=== PATIENT | female | born 1955 | race Caucasian/White ===

== ENCOUNTER 2016-05-03 00:46 | Emergency (ER) | payer OTHER, MEDICAID ==
--- NOTE | 2016-05-03 00:59 | ED ---
General Adult HPI - General Stated complaint: needle stick [facility] Time Seen by Provider: 05/03/16 00:46 Source: patient, RN notes reviewed - History of Present Illness Initial comments: This is a 60-year-old female who was stuck in the right index finger by a needle that apparently bad after she gave an injection of medication and the psychiatric department. She states she squeezed it and wash it well and irrigated. She denies any numbness tingling or loss of function to her tetanus shots are up-to-date no other complaints - Related Data Home Medications Medication Instructions Recorded Confirmed Naproxen [Naprosyn] 500 mg PO Q12HR 01/27/16 05/03/16 Previous Rx's Medication Instructions Recorded HYDROcodone/APAP 5-325MG [Tracy 1 tab PO Q6HR PRN #20 tab 01/27/16 5-325] Allergies Allergy/AdvReac Type Severity Reaction Status Date / Time Sulfa (Sulfonamide Allergy Anaphylaxis Verified 05/03/16 01:00 Antibiotics) Review of Systems ROS Statement: Those systems with pertinent positive or pertinent negative responses have been documented in the HPI. ROS Other: All systems not noted in ROS Statement are negative. Past Medical History Additional Past Medical History / Comment(s): neck pain History of Any Multi-Drug Resistant Organisms: None Reported Past Surgical History: Section Past Psychological History: No Psychological Hx Reported Smoking Status: Never smoker Past Alcohol Use History: None Reported Past Drug Use History: None Reported General Exam - General Exam Comments Initial Comments: This is a well-developed well-nourished awake alert oriented 3 female Limitations: no limitations General appearance: alert Extremities exam: Present: full ROM, tenderness, normal capillary refill, other (Evidence of a needle stick at the lateral aspect of the right index finger PIP joint no active bleeding no formed by seen a small amount of localized ecchymosis is noted. No foreign body. Distally is no sensorimotor or vascular deficits) Neurological exam: Present: alert, oriented X3, CN II-XII intact Psychiatric exam: Present: normal affect, normal mood Skin exam: Present: warm, dry Course Vital Signs 05/03/16 00:58 Temperature 99 F Pulse Rate 100 Respiratory 20 Rate Blood Pressure 195/102 O2 Sat by Pulse 97 Oximetry Medical Decision Making - Medical Decision Making I did discuss findings with the patient she will be discharged Disposition Clinical Impression: Puncture wound of finger of right hand Disposition: HOME SELF-CARE Condition: Good Instructions: Puncture Wound (ED)
[2016-05-03 01:00] VITALS: BP 195/102; PULSE 100; RESP 20; TEMP 99
== END 2016-05-03 01:29 | disposition home or self-care (01) ==
LOC: EC 00:46
DX: S61.230A Puncture wound without foreign body of right index finger without damage to nail, initial encounter (principal); W46.0XXA Contact with hypodermic needle, initial encounter; Y92.238 Other place in hospital as the place of occurrence of the external cause; Y99.0 Civilian activity done for income or pay; Z88.2 Allergy status to sulfonamides; Z79.1 Long term (current) use of non-steroidal anti-inflammatories (NSAID)
CPT/HCPCS: 99282

== ENCOUNTER → 2018-01-24 | Outpatient (CLI) | payer MEDICAID ==
--- NOTE | 2018-01-24 13:54 | MM ---
Reason for exam: screening (asymptomatic). Last mammogram was performed 1 year and 11 months ago. History: Patient is postmenopausal and has history of other cancer at age 42. Family history of breast cancer in maternal aunt. Benign right US cyst aspiration of the right breast, November 03, 2004. Physical Findings: A clinical breast exam by your physician is recommended on an annual basis and results should be correlated with mammographic findings. MG 3D Screening Mammo W/Cad Bilateral CC and MLO view(s) were taken. Prior study comparison: March 10, 2016, bilateral MG 3d screening mammo w/cad. May 25, 2013, bilateral digital screening mammo w/CAD. The breast tissue is heterogeneously dense. This may lower the sensitivity of mammography. Stable benign calcifications. There is no discrete abnormality. No significant changes when compared with prior studies. ASSESSMENT: Benign, BI-RAD 2 RECOMMENDATION: Routine screening mammogram of both breasts in 1 year.
== END | disposition home or self-care (01) ==
LOC: RADMAMWWP 08:04
PROVIDERS: ATTEND Internal Medicine
DX: Z12.31 Encounter for screening mammogram for malignant neoplasm of breast (principal)
CPT/HCPCS: 77063; 77067

== ENCOUNTER 2018-05-12 04:38 | Emergency (ER) | payer MEDICAID, OTHER ==
[2018-05-12 04:46] VITALS: RESP 18; TEMP 97.7
[2018-05-12] MEDS ORDERED: IBUPROFEN 600 MG TAB PO STA (04:46)
[2018-05-12] MEDS ORDERED: ACETAMINOPHEN TAB 325 MG TAB PO STA (04:46)
[2018-05-12 05:10] VITALS: BP 188/130; PULSE 109
--- NOTE | 2018-05-12 05:20 | XR ---
EXAM: XR Left Humerus, 2 or More Views CLINICAL HISTORY: ITS.REASON XR Reason: Pain TECHNIQUE: Frontal and lateral views of the left humerus. COMPARISON: No relevant prior studies available. FINDINGS: Bones/joints: No acute fracture. Subtle endosteal thickening/sclerotic density along the proximal to mid humeral shaft along the medial cortex. No periosteal changes. No lucent changes. This likely represents benign lesion. No dislocation. Soft tissues: Unremarkable. IMPRESSION: No acute bony abnormality. If symptoms persist, consider further imaging with bone scan or MR
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
== END 2018-05-12 05:42 | disposition home or self-care (01) ==
LOC: EC 04:38
DX: S50.02XA Contusion of left elbow, initial encounter (principal); I10 Essential (primary) hypertension; Z79.1 Long term (current) use of non-steroidal anti-inflammatories (NSAID); Z88.2 Allergy status to sulfonamides; Y04.8XXA Assault by other bodily force, initial encounter; Y92.69 Other specified industrial and construction area as the place of occurrence of the external cause; Y93.89 Activity, other specified
CPT/HCPCS: 99284

== ENCOUNTER → 2018-05-13 | Outpatient (CLI) | payer OTHER ==
--- NOTE | 2018-05-13 11:52 | XR ---
Left hip HISTORY: Trauma and pain 2 views of the left hip Bone mineralization, joint spaces and alignment are maintained. IMPRESSION: No fracture or dislocation.
== END | disposition home or self-care (01) ==
LOC: RADXRMAIN 09:24
PROVIDERS: ATTEND Emergency Medicine
DX: S70.02XA Contusion of left hip, initial encounter (principal)
CPT/HCPCS: 73502

== ENCOUNTER → 2018-05-30 | Outpatient (CLI) | payer OTHER ==
--- NOTE | 2018-05-30 09:37 | XR ---
EXAMINATION TYPE: XR cervical spine comp DATE OF EXAM: 05/30/2018 COMPARISON: NONE HISTORY: Pain TECHNIQUE: Four views are submitted. FINDINGS: There are no compression deformities. The prevertebral soft tissue structures are within normal limi ts. There is multilevel facet arthropathy and multilevel mild degenerative disc disease with moderat e changes at C5-C6. Posterior spondylosis noted. Soft tissue ossification seen. Foraminal encroachmen t C5-C6 noted. Odontoid view is suboptimal. Grossly intact on the lateral view. IMPRESSION: 1. Multilevel degenerative disc disease and facet arthropathy with suspected foraminal encroachment a t C5-C6. MRI correlation suggested.
== END | disposition home or self-care (01) ==
LOC: RADXRMAIN 09:15
PROVIDERS: ATTEND Emergency Medicine
DX: M50.322 Other cervical disc degeneration at C5-C6 level (principal); M46.82 Other specified inflammatory spondylopathies, cervical region; S40.022A Contusion of left upper arm, initial encounter
CPT/HCPCS: 72050

== ENCOUNTER 2018-05-31 07:37 | Emergency (ER) | payer MEDICAID ==
[2018-05-31 07:43] VITALS: RESP 18; TEMP 98.6
[2018-05-31] MEDS ORDERED: LABETALOL SYRINGE 5 MG/ML IVP STA ×3 (08:07→10:28)
[2018-05-31] MEDS ORDERED: SODIUM CHLORIDE 0.9% 1,000 ML IV STA (08:07)
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
[2018-05-31 08:56] LABS: Basophils # (A) 0.1 k/uL (0-0.2); Basophils % (A) 1 %; Eosinophils # (A) 0.2 k/uL (0-0.7); Eosinophils % (A) 2 %; HCT 41.9 % (34.0-46.0); Lymphocytes # (A) 1.3 k/uL (1.0-4.8); Lymphocytes % (A) 19 %; MCH 30.4 pg (25.0-35.0); MCHC 33.5 g/dL (31.0-37.0); MCV 90.8 fL (80.0-100.0); Mean Platelet Volume 6.8; Monocytes # (A) 0.6 k/uL (0-1.0); Monocytes % (A) 9 %; Neutrophils # (A) 4.6 k/uL (1.3-7.7); Neutrophils % (A) 67 %; Platelet Count 308 k/uL (150-450); RBC 4.61 m/uL (3.80-5.40); RDW 13.7 % (11.5-15.5); WBC 6.8 k/uL (3.8-10.6)
--- NOTE | 2018-05-31 09:01 | CT ---
EXAMINATION TYPE: CT brain wo con DATE OF EXAM: 05/31/2018 HISTORY: headache, high blood pressure CT DLP: 1087.4 mGycm. Automated Exposure Control for Dose Reduction was Utilized. TECHNIQUE: CT scan of the head is performed without contrast. COMPARISON: None. FINDINGS: There is no acute intracranial hemorrhage or midline shift identified. There is diffuse v entricular and sulcal prominence consistent with diffuse age-related cerebral atrophy. There is low- attenuation in the periventricular white matter consistent with chronic small vessel ischemic change. Dominant left vertebral artery is incidentally noted. The globes are intact and the visualized sinu ses are clear. IMPRESSION: No acute intracranial hemorrhage or midline shift. There is mild diffuse age-related ce rebral atrophy and chronic small vessel ischemic change noted.
[2018-05-31 09:06] LABS: Albumin 4.5 g/dL (3.5-5.0); Calcium 9.7 mg/dL (8.4-10.2); Total Bilirubin 0.5 mg/dL (0.2-1.3); Total Protein 7.2 g/dL (6.3-8.2)
[2018-05-31 12:43] VITALS: BP 173/102; PULSE 82
== END 2018-05-31 12:43 | disposition home or self-care (01) ==
LOC: EC 07:37
DX: I10 Essential (primary) hypertension (principal); Z85.828 Personal history of other malignant neoplasm of skin; Z79.82 Long term (current) use of aspirin; Z88.2 Allergy status to sulfonamides
CPT/HCPCS: 36415; 70450; 80053; 85025; 96361; 96374; 96376; 99284

== ENCOUNTER → 2018-06-03 | Outpatient (CLI) | payer OTHER ==
--- NOTE | 2018-06-03 15:04 | MR ---
EXAMINATION TYPE: MR shoulder LT wo con DATE OF EXAM: 06/03/2018 COMPARISON: Left humeral radiographs dated 05/12/2018 HISTORY: Left shoulder pain TECHNIQUE: Multiplanar, multisequence imaging of the left shoulder is performed without contrast. FINDINGS: Rotator Cuff: There is articular surface fraying of the most anterior distal fibers of the supraspina tus and bursal surface fraying of the distal fibers with a 4 mm articular surface tear. This is super imposed upon mild tendinopathy. With regards to the infraspinatus there is mild tendinopathy with alteration of the distal insertiona l fiber tendon signal. The teres minor and subscapularis are unremarkable in signal and morphology. Acromioclavicular Joint: There is mild acromioclavicular arthropathy with minimal impression upon the supraspinatus myotendinous junction. No alteration of the internal signal of the supraspinatus at th is location. Glenohumeral Joint: No joint space narrowing. Labrum: The there is a superior posterior labral tear seen on sagittal image 17. This is nondisplaced .. Biceps Tendon: The long head of biceps is in normal location within bicipital groove. There is modera te ventricular portion biceps tendinosis as there is attenuation of the intra-articular portion of th e long head of biceps Bone marrow signal: No focal abnormal marrow signal is appreciated. Osseous cystic changes seen of th e humeral head greater posteriorly. Other: There is a trace amount of fluid in the subcoracoid bursa that may clinically correlate with b ursitis. IMPRESSION: 1. Low-grade partial-thickness 4 mm articular surface tear of the distal fibers of the supraspinatus superimposed upon mild tendinopathy. 2. Small nondisplaced posterior superior labral tear. 3. Moderate intra-articular biceps tendinopathy of the long head of the biceps tendon. 4. Mild infraspinatus tendinopathy. 5. Trace amount of fluid in the subcoracoid bursa may correlate with bursitis clinically. 6. Mild acromioclavicular arthropathy.
== END | disposition home or self-care (01) ==
LOC: RADMRIMAIN 13:39
PROVIDERS: ATTEND Emergency Medicine
DX: S43.492A Other sprain of left shoulder joint, initial encounter (principal); M75.112 Incomplete rotator cuff tear or rupture of left shoulder, not specified as traumatic; M75.22 Bicipital tendinitis, left shoulder; M19.012 Primary osteoarthritis, left shoulder

== ENCOUNTER → 2018-06-18 | Outpatient (CLI) | payer MEDICAID ==
--- NOTE | 2018-06-18 14:19 | PE ---
EXAMINATION TYPE: PET CT fusion whole body DATE OF EXAM: 06/18/2018 COMPARISON: NONE HISTORY: Malignant melanoma diagnosed right hip, left arm, left face, and right back per patient TECHNIQUE: Following the intravenous administration of 12.79 mCi of F-18 FDG, whole body images are performed from the top of skull to the bottom of feet. Images are reviewed on the computer in the co froilan, axial, and sagittal planes. Reconstructed rotating images are created on independent workstat ion and reviewed on the computer. A noncontrast CT is performed in conjunction with the PET scan. SCAN: Initial Scan FINDINGS: HEAD AND NECK: No suspicious hypermetabolic uptake. CHEST, MEDIASTINUM, AND HILAR REGION: No suspicious hypermetabolic uptake. ABDOMEN AND PELVIS: Normal urinary is present. No suspicious hypermetabolic uptake is seen. OSSEOUS STRUCTURES: Mild uptake left shoulder region presumed postinflammatory. No suspicious hyperme tabolic uptake. OTHER CT: Mild underlying emphysematous changes felt present with dependent atelectasis in both lower lobes. Mild facet arthropathy lower lumbar spine. LOWER EXTREMITIES: No suspicious hypermetabolic uptake. Incidental small bilateral Simmons's cysts. IMPRESSION: No suspicious hypermetabolic uptake to suggest residual or metastatic malignancy assuming patient had complete multilevel excision.
== END | disposition home or self-care (01) ==
LOC: RADPETMAIN 07:30
PROVIDERS: ATTEND Internal Medicine
DX: C43.8 Malignant melanoma of overlapping sites of skin (principal)
CPT/HCPCS: 78816; A9552

== ENCOUNTER → 2019-02-08 | Outpatient (CLI) | payer MEDICAID ==
[2019-02-08 08:29] LABS: Basophils # (A) 0.1 k/uL (0-0.2); Basophils % (A) 1 %; Eosinophils # (A) 0.2 k/uL (0-0.7); Eosinophils % (A) 2 %; HCT 41.9 % (34.0-46.0); HGB 13.9 gm/dL (11.4-16.0); Lymphocytes # (A) 2.3 k/uL (1.0-4.8); Lymphocytes % (A) 28 %; MCH 30.1 pg (25.0-35.0); MCHC 33.2 g/dL (31.0-37.0); MCV 90.7 fL (80.0-100.0); Mean Platelet Volume 7.1; Monocytes # (A) 0.6 k/uL (0-1.0); Monocytes % (A) 7 %; Neutrophils # (A) 4.9 k/uL (1.3-7.7); Neutrophils % (A) 60 %; Platelet Count 320 k/uL (150-450); RBC 4.62 m/uL (3.80-5.40); RDW 13.2 % (11.5-15.5); WBC 8.1 k/uL (3.8-10.6)
[2019-02-08 16:20] LABS: Albumin 4.6 g/dL (3.80-4.90); Anion Gap 10.1 mmol/L (4.00-12.00); BUN/Creat Ratio 16.67 Ratio (12.00-20.00); Calcium 9.3 mg/dL (8.7-10.3); Carbon Dioxide 27.9 mmol/L (21.6-31.8); Chol/HDL Ratio 2.34; Globulin 2.3 g/dL (1.6-3.3); LDL Cholesterol,Calculated 110.4 mg/dL (0.0-131.0); Potassium 4.6 mmol/L (3.5-5.5); Total Bilirubin 0.4 mg/dL (0.2-1.2); Total Protein 6.9 g/dL (6.2-8.2); VLDL Calculation 16.6 mg/dL (5.00-40.00)
== END | disposition home or self-care (01) ==
LOC: LABWHC1 07:42
PROVIDERS: ATTEND Internal Medicine
DX: Z00.01 Encounter for general adult medical examination with abnormal findings (principal); Z13.220 Encounter for screening for lipoid disorders; I10 Essential (primary) hypertension
CPT/HCPCS: 36415; 80053; 80061; 85025

== ENCOUNTER → 2019-03-08 | Outpatient (CLI) | payer MEDICAID ==
--- NOTE | 2019-03-09 09:54 | MM ---
Reason for exam: screening (asymptomatic). Last mammogram was performed 1 year and 1 month ago. History: Patient is postmenopausal and has history of other cancer at age 42. Family history of breast cancer in maternal aunt. Benign right US cyst aspiration of the right breast, November 03, 2004. Physical Findings: A clinical breast exam by your physician is recommended on an annual basis and results should be correlated with mammographic findings. MG 3D Screening Mammo W/Cad Bilateral CC and MLO view(s) were taken. Prior study comparison: January 24, 2018, bilateral MG 3d screening mammo w/cad. March 10, 2016, bilateral MG 3d screening mammo w/cad. The breast tissue is heterogeneously dense. This may lower the sensitivity of mammography. Benign appearing calcifications in the left breast. No suspicious abnormality. No significant changes when compared with prior studies. ASSESSMENT: Benign, BI-RAD 2 RECOMMENDATION: Routine screening mammogram of both breasts in 1 year.
== END | disposition home or self-care (01) ==
LOC: RADMAMWWP 07:36
PROVIDERS: ATTEND Internal Medicine
DX: Z12.31 Encounter for screening mammogram for malignant neoplasm of breast (principal)
CPT/HCPCS: 77063; 77067

== ENCOUNTER → 2020-02-09 | Outpatient (CLI) | payer MEDICAID ==
[2020-02-09 08:58] LABS: HCT 41.8 % (34.0-46.0); HGB 14.1 gm/dL (11.4-16.0); MCH 30.3 pg (25.0-35.0); MCHC 33.7 g/dL (31.0-37.0); MCV 89.9 fL (80.0-100.0); Mean Platelet Volume 7.9; Platelet Count 337 k/uL (150-450); RBC 4.65 m/uL (3.80-5.40); RDW 13.1 % (11.5-15.5); WBC 8.3 k/uL (3.8-10.6)
[2020-02-09 16:05] LABS: African American GFR (CKD) 69.9 (60.0-200.0); Albumin 4.5 g/dL (3.80-4.90); Albumin/Globulin Ratio 1.96 (1.60-3.17); Anion Gap 8.9 mmol/L (4.00-12.00); Calcium 9.6 mg/dL (8.7-10.3); Carbon Dioxide 27.1 mmol/L (21.6-31.8); Chol/HDL Ratio 2.49; Globulin 2.3 g/dL (1.6-3.3); LDL Cholesterol,Calculated 113.8 mg/dL (0.0-131.0); Non-African American GFR(CKD) 60.3 (60.0-200.0); Potassium 4.7 mmol/L (3.5-5.5); Total Bilirubin 0.4 mg/dL (0.3-1.2); Total Protein 6.8 g/dL (6.2-8.2); VLDL Calculation 17.2 mg/dL (5.00-40.00)
== END | disposition home or self-care (01) ==
LOC: LABWHC1 07:50
PROVIDERS: ATTEND Internal Medicine
DX: Z00.01 Encounter for general adult medical examination with abnormal findings (principal); Z13.220 Encounter for screening for lipoid disorders; I10 Essential (primary) hypertension
CPT/HCPCS: 36415; 80053; 80061; 85027

== ENCOUNTER → 2020-05-02 | Outpatient (CLI) | payer MEDICAID ==
--- NOTE | 2020-05-03 14:12 | MM ---
Reason for exam: screening (asymptomatic). Last mammogram was performed 1 year and 2 months ago. History: Patient is postmenopausal and has history of other cancer at age 42. Family history of breast cancer in maternal aunt. Benign right US cyst aspiration of the right breast, November 03, 2004. Physical Findings: A clinical breast exam by your physician is recommended on an annual basis and results should be correlated with mammographic findings. MG 3D Screening Mammo W/Cad Bilateral CC and MLO view(s) were taken. XCCL view(s) were taken of the right breast. Prior study comparison: March 08, 2019, bilateral MG 3d screening mammo w/cad. January 24, 2018, bilateral MG 3d screening mammo w/cad. The breast tissue is heterogeneously dense. This may lower the sensitivity of mammography. No significant changes when compared with prior studies. ASSESSMENT: Benign, BI-RAD 2 RECOMMENDATION: Routine screening mammogram of both breasts in 1 year.
== END | disposition home or self-care (01) ==
LOC: RADMAMWWP 08:05
PROVIDERS: ATTEND Internal Medicine
DX: Z12.31 Encounter for screening mammogram for malignant neoplasm of breast (principal)
CPT/HCPCS: 77063; 77067

== ENCOUNTER → 2020-10-30 | Outpatient (CLI) | payer MEDICAID | END | disposition home or self-care (01) | LOC: LABWHC1 15:00 | PROVIDERS: ATTEND Emergency Medicine | DX: Z03.818 Encounter for observation for suspected exposure to other biological agents ruled out (principal); Z20.822 Contact with and (suspected) exposure to COVID-19 | CPT/HCPCS: 87635; C9803 ==

== ENCOUNTER → 2021-02-06 | Outpatient (CLI) | payer MEDICAID ==
[2021-02-06 15:39] LABS: Basophils # (A) 0.09 X 10*3/uL (0.00-0.10); Basophils % (A) 1.1 %; Eosinophils % (A) 3.8 %; HCT 42.6 % (37.2-46.3); HGB 13.8 g/dL (12.0-15.0); Lymphocytes # (A) 3.05 X 10*3/uL (0.90-5.00); Lymphocytes % (A) 38.9 %; MCH 29.7 pg (27.0-32.0); MCHC 32.4 g/dL (32.0-37.0); MCV 91.6 fL (80.0-97.0); Mean Platelet Volume 10.6 fL (9.5-12.2); Monocytes # (A) 0.64 X 10*3/uL (0.20-1.00); Monocytes % (A) 8.2 %; Neutrophils # (A) 3.74 X 10*3/uL (1.80-7.70); Neutrophils % (A) 47.7 %; Platelet Count 347 X 10*3/uL (140-440); RBC 4.65 X 10*6/uL (4.10-5.20); RDW 13.7 % (11.5-14.5); WBC 7.84 X 10*3/uL (4.50-10.00)
[2021-02-06 16:36] LABS: ALT 49 U/L (8-44); AST 36 U/L (13-35); African American GFR (CKD) 78.9 (60.0-200.0); Albumin 4.6 g/dL (3.8-4.9); Albumin/Globulin Ratio 1.77 (1.60-3.17); Alkaline Phosphatase 108 U/L (41-126); BUN/Creat Ratio 12.89 Ratio (12.00-20.00); Blood Urea Nitrogen 11.6 mg/dL (9.0-27.0); Calcium 9.5 mg/dL (8.7-10.3); Chloride 105 mmol/L (96-109); Chol/HDL Ratio 2.67 Ratio; Globulin 2.6 g/dL (1.6-3.3); Glucose 84 mg/dL (70-110); LDL Cholesterol,Calculated 132.9 mg/dL (0.0-131.0); Sodium 142 mmol/L (135-145); Total Protein 7.2 g/dL (6.2-8.2)
== END | disposition home or self-care (01) ==
LOC: LABWHC1 07:46
PROVIDERS: ATTEND Internal Medicine
DX: Z13.220 Encounter for screening for lipoid disorders (principal); Z00.01 Encounter for general adult medical examination with abnormal findings; I10 Essential (primary) hypertension
CPT/HCPCS: 36415; 80053; 80061; 85025

== ENCOUNTER 2021-04-08 18:40 | Emergency (ER) | payer MEDICAID, OTHER ==
--- NOTE | 2021-04-08 20:08 | ED ---
General Adult HPI - General Stated complaint: possible shingles Time Seen by Provider: 04/08/21 19:30 Source: patient, RN notes reviewed Limitations: no limitations - History of Present Illness Initial comments: This is a pleasant 65-year-old female who presents to the emergency room with symptoms have COVID-19. Patient went for an outpatient Covid test. Patient also has developed a rash to her right flank area. She states she is getting stinging and burning to the area. Patient has no respiratory distress. Patient states that she has had low-grade fever, some body aches, fatigue which started yesterday. Patient states that her rash actually started about 5 days ago. No headache, s, no changes in vision or hearing, no sore throat or difficulty with speech, no neck pain, no chest pain or shortness of breath, no abdominal pain, no nausea or vomiting, no changes in urination or bowel movements, no numbness or tingling, no extremity pain, no skin rashes or lesions. - Related Data Home Medications Medication Instructions Recorded Confirmed Multivitamins, Thera [Multivitamin 1 tab PO DAILY 05/31/18 04/08/21 (formulary)] amLODIPine [Norvasc] 10 mg PO DAILY 04/08/21 04/08/21 Previous Rx's Medication Instructions Recorded valACYclovir HCL 1,000 mg PO TID 7 Days #21 tab 04/08/21 Allergies Allergy/AdvReac Type Severity Reaction Status Date / Time Sulfa (Sulfonamide Allergy Anaphylaxis Verified 04/08/21 20:18 Antibiotics) Review of Systems ROS Statement: Those systems with pertinent positive or pertinent negative responses have been documented in the HPI. ROS Other: All systems not noted in ROS Statement are negative. Past Medical History Additional Past Medical History / Comment(s): neck pain, skin cancer History of Any Multi-Drug Resistant Organisms: None Reported Past Surgical History: Section Additional Past Surgical History / Comment(s): skin cancer removed Past Psychological History: No Psychological Hx Reported Past Alcohol Use History: None Reported Past Drug Use History: None Reported General Exam - General Exam Comments Initial Comments: Patient does not appear to be ill or toxic. Vital signs stable, patient afebrile. General appearance: alert, in no apparent distress Head exam: Present: atraumatic, normocephalic, normal inspection Eye exam: Present: normal appearance, PERRL, EOMI. Absent: scleral icterus, conjunctival injection, periorbital swelling ENT exam: Present: normal exam, mucous membranes moist Neck exam: Present: normal inspection. Absent: tenderness, meningismus, lymphadenopathy Respiratory exam: Present: normal lung sounds bilaterally. Absent: respiratory distress, wheezes, rales, rhonchi, stridor Cardiovascular Exam: Present: regular rate, normal rhythm, normal heart sounds. Absent: systolic murmur, diastolic murmur, rubs, gallop, clicks GI/Abdominal exam: Present: soft, normal bowel sounds. Absent: distended, tenderness, guarding, rebound, rigid Extremities exam: Present: normal inspection, full ROM, normal capillary refill. Absent: tenderness, pedal edema, joint swelling, calf tenderness Back exam: Present: normal inspection, full ROM. Absent: tenderness Neurological exam: Present: alert, oriented X3, CN II-XII intact Psychiatric exam: Present: normal affect, normal mood Skin exam: Present: warm, dry, intact, rash, vesicles (Vesicular rash to the right back and flank consistent with herpes zoster dermatitis. Corresponds to the T10 or 11 dermatome.) Course Vital Signs 04/08/21 20:09 Temperature 101.6 F H Pulse Rate 110 H Respiratory 20 Rate Blood Pressure 165/119 O2 Sat by Pulse 98 Oximetry Medical Decision Making - Medical Decision Making Test positive for COVID-19. Patient has no evidence of poor oxygenation. No tachypnea on room air. Also has symptoms consistent with herpes zoster dermatitis. However we did miss to 48 hour cardiac. Will treat with valacyclovir. Patient only complaining of mild stinging pain which is intermittent to the area. Patient can continue [id number] acetaminophen and/or ibuprofen for further pain control. Follow-up with your regular physician as directed. Return to the ER immediately if any symptoms worsen, new symptoms arise, or any other problems develop. Patient counseling quarantine measures. All questions answered. Disposition Clinical Impression: COVID-19, Herpes zoster dermatitis Disposition: HOME SELF-CARE Condition: Stable Instructions (If sedation given, give patient instructions): Coronavirus Disease 2019 (COVID-19), Shingles (ED) Additional Instructions: SELF QUARANTINE DISCHARGE: As you are at risk for symptoms due to coronavirus, please stay home and stay away from others as much as possible. Please maintain social distance of 6 feet if possible. You should not return to work until at least 3 days (72 hours) have passed since recovery of symptoms. This defined as resolution of fever without the use of fever reducing medicines and improvement in respiratory symptoms (e.g,, cough, shortness of breath) and, At least 5 days have passed since symptoms first appeared. More information about what to do if you are sick can be found on the CDC website at https://www.cdc.gov/coronavirus/2019-ncov/ri-zeo-alf-sick/amgdd-eydo-ruaf.html Expect the symptoms to last for 7-14 days from onset. Use acetaminophen (Tylenol) as needed for discomfort. You can take a maximum of 1 gram every 6 hours for discomfort, with your total dose in 24 hours not exceeding 4 grams. Be sure to maintain hydration. Drink continuous water and/or items high in vitamin C, such as orange juice and/or lemonade. Unless you have high blood pressure, you may consider Sudafed (which is [id number]) for nasal congestion. I would suggest that a short acting Sudafed rather than the 24 hour Sudafed. For a cough you may take Mucinex or Robitussin. Also consider the use of Vicks Vapor Rub or your chest when you sleep. Use a humidifier that is cleaned frequently, in the bedroom at night. For Nausea /Vomiting/Diarrhea associated with your Illness: o Small frequent sips of room temperature liquids. o Diet: [place] Foods - If you are still experiencing discomfort and/or nausea please slowly advancing your diet using the BRAT Diet = bananas, rice, apples/apple sauce, toast. o With diarrhea avoid any dairy for 48 hours after symptoms resolved. o Continue with activity as tolerated. If your symptoms do get worse and you believe that the upper respiratory infection has developed into something else, such as pneumonia or severe dehyd ration, please return to the emergency department or follow-up with your primary care. But expect to be symptomatic for the days as indicated above Touch base with your regular physician by phone. Call tomorrow. Prescriptions: valACYclovir HCL 1,000 mg PO TID 7 Days #21 tab Is patient prescribed a controlled substance at d/c from ED?: No Referrals: Savita Plaza MD [Primary Care Provider] - 04/15/21 Time of Disposition: 20:39
[2021-04-08 20:12] VITALS: BP 165/119; PULSE 110; RESP 20; TEMP 101.6
[2021-04-08] MEDS ORDERED: valACYclovir 500 MG TAB PO STA (20:35)
[2021-04-08] MEDS ORDERED: IBUPROFEN 400 MG TAB PO STA (20:35)
[2021-04-08] MEDS ORDERED: ACETAMINOPHEN TAB 500 MG TAB PO STA (20:35)
== END 2021-04-08 21:01 | disposition home or self-care (01) ==
LOC: EC 18:40
DX: U07.1 COVID-19 (principal); B02.0 Zoster encephalitis; L30.9 Dermatitis, unspecified; Z88.2 Allergy status to sulfonamides
CPT/HCPCS: 99283

== ENCOUNTER → 2021-04-08 | Outpatient (CLI) | payer MEDICAID, OTHER | END | disposition home or self-care (01) | LOC: LABWHC1 16:47 | PROVIDERS: ATTEND Emergency Medicine | DX: U07.1 COVID-19 (principal) | CPT/HCPCS: 87635 ==

== ENCOUNTER → 2021-05-21 | Outpatient (CLI) | payer MEDICAID ==
--- NOTE | 2021-05-22 14:31 | MM ---
Reason for exam: screening (asymptomatic). Last mammogram was performed 1 year and 1 month ago. History: Patient is postmenopausal and has history of other cancer at age 42. Family history of breast cancer in maternal aunt. Benign right US cyst aspiration of the right breast, November 03, 2004. Physical Findings: A clinical breast exam by your physician is recommended on an annual basis and results should be correlated with mammographic findings. MG 3D Screening Mammo W/Cad Bilateral CC and MLO view(s) were taken. Prior study comparison: May 02, 2020, bilateral MG 3d screening mammo w/cad. March 08, 2019, bilateral MG 3d screening mammo w/cad. The breast tissue is heterogeneously dense. This may lower the sensitivity of mammography. There is no discrete abnormality. No significant changes when compared with prior studies. ASSESSMENT: Negative, BI-RAD 1 RECOMMENDATION: Routine screening mammogram of both breasts in 1 year.
== END | disposition home or self-care (01) ==
LOC: RADMAMWWP 08:06
PROVIDERS: ATTEND Internal Medicine
DX: Z12.31 Encounter for screening mammogram for malignant neoplasm of breast (principal)
CPT/HCPCS: 77063; 77067

== ENCOUNTER → 2021-08-13 | Outpatient (CLI) | payer MEDICAID ==
[2021-08-13 09:08] LABS: Basophils # (A) 0.06 X 10*3/uL (0.00-0.10); Basophils % (A) 0.7 %; Eosinophils # (A) 0.26 X 10*3/uL (0.04-0.35); Immature Grans, Automated 0.4 %; Lymphocytes # (A) 2.85 X 10*3/uL (0.90-5.00); Lymphocytes % (A) 33.3 %; MCH 30.3 pg (27.0-32.0); MCHC 34.1 g/dL (32.0-37.0); MCV 88.7 fL (80.0-97.0); Mean Platelet Volume 10.5 fL (9.5-12.2); Monocytes # (A) 0.74 X 10*3/uL (0.20-1.00); Monocytes % (A) 8.6 %; NRBC Per 100 WBC 0 /100 WBCS (0.0-0.0); Neutrophils # (A) 4.62 X 10*3/uL (1.80-7.70); Platelet Count 356 X 10*3/uL (140-440); RBC 4.62 X 10*6/uL (4.10-5.20); RDW 13.2 % (11.5-14.5); WBC 8.56 X 10*3/uL (4.50-10.00)
[2021-08-13 10:18] LABS: ALT 34 U/L (8-44); AST 27 U/L (13-35); African American GFR (CKD) 68.9 (60.0-200.0); Albumin 4.7 g/dL (3.8-4.9); Albumin/Globulin Ratio 1.74 (1.60-3.17); Alkaline Phosphatase 81 U/L (41-126); Blood Urea Nitrogen 12.6 mg/dL (9.0-27.0); Calcium 9.6 mg/dL (8.7-10.3); Carbon Dioxide 24.5 mmol/L (20.0-27.5); Chloride 106 mmol/L (96-109); Chol/HDL Ratio 2.71 Ratio; Globulin 2.7 g/dL (1.6-3.3); Glucose 99 mg/dL (70-110); Non-African American GFR(CKD) 59.5 (60.0-200.0); Potassium 4.2 mmol/L (3.5-5.5); Sodium 142 mmol/L (135-145); Total Protein 7.4 g/dL (6.2-8.2); VLDL Calculation 17.32 mg/dL (5.00-40.00)
== END | disposition home or self-care (01) ==
LOC: LABWHC1 08-12 07:41
PROVIDERS: ATTEND Internal Medicine
DX: Z13.220 Encounter for screening for lipoid disorders (principal); I10 Essential (primary) hypertension
CPT/HCPCS: 36415; 80053; 80061; 85025

== ENCOUNTER → 2022-11-25 | Outpatient (CLI) | payer MEDICAID ==
[2022-11-25 12:26] LABS: Basophils # (A) 0.08 X 10*3/uL (0.00-0.10); Basophils % (A) 0.9 %; Eosinophils # (A) 0.35 X 10*3/uL (0.04-0.35); Eosinophils % (A) 3.8 %; HCT 40.1 % (37.2-46.3); HGB 13.5 d/dL (12.0-15.0); Lymphocytes # (A) 3.31 X 10*3/uL (0.90-5.00); Lymphocytes % (A) 35.7 %; MCHC 33.7 d/dL (32.0-37.0); MCV 89.1 FL (80.0-97.0); Mean Platelet Volume 10.7 FL (9.5-12.2); Monocytes # (A) 0.81 X 10*3/uL (0.20-1.00); Monocytes % (A) 8.7 %; NRBC Per 100 WBC 0 X 10*3/uL (0.00-0.01); Neutrophils # (A) 4.71 X 10*3/uL (1.80-7.70); Neutrophils % (A) 50.7 %; Platelet Count 331 X 10*3/uL (140-440); RDW 13.3 % (11.5-14.5); WBC 9.28 X 10*3/uL (4.50-10.00)
[2022-11-25 13:08] LABS: ALT 44 U/L (8-44); AST 32 U/L (13-35); Albumin 4.6 d/dL (3.8-4.9); Alkaline Phosphatase 86 U/L (41-126); BUN/Creat Ratio 14.91 Ratio (12.00-20.00); Blood Urea Nitrogen 16.4 mg/dL (9.0-27.0); Calcium 9.8 mg/dL (8.7-10.3); Chloride 105 mmol/L (96-109); Globulin 2.3 d/dL (1.6-3.3); Glucose 97 mg/dL (70-110); LDL Cholesterol,Calculated 120.6 mg/dL (0.0-131.0); Potassium 4.9 mmol/L (3.5-5.5); Sodium 141 mmol/L (135-145); Total Bilirubin 0.4 mg/dL (0.3-1.2); Total Protein 6.9 d/dL (6.2-8.2)
== END | disposition home or self-care (01) ==
LOC: LABWHC1 07:41
PROVIDERS: ATTEND Internal Medicine
DX: Z00.01 Encounter for general adult medical examination with abnormal findings (principal); Z13.220 Encounter for screening for lipoid disorders; I10 Essential (primary) hypertension
CPT/HCPCS: 36415; 80053; 80061; 85025

== ENCOUNTER → 2024-02-18 | Outpatient (CLI) | payer MEDICAID ==
--- NOTE | 2024-02-22 08:13 | MM ---
Reason for Exam: Screening (asymptomatic). Last mammogram was performed 1 year(s) and 8 month(s) ago. Patient History: Menarche at age 15. First Full-Term at age 21. Postmenopausal. Other cancer, age 42. 11/03/2004, Benign Cyst Aspiration on the right side. Maternal aunt had breast cancer. Risk Values: Jemma 5 year model risk: 1.2%. NCI Lifetime model risk: 4.4%. Prior Study Comparison: 05/02/2020 Bilateral Screening Mammogram, [facility]. 05/21/2021 Bilateral Screening Mammogram, [facility]. 06/02/2022 Bilateral MG 3D screening mammo w/cad, [facility]. Tissue Density: The breasts are heterogeneously dense, which may obscure small masses. Findings: Analyzed By CAD. There is no suspicious group of microcalcifications or new suspicious mass in either breast. Benign-appearing calcifications. Overall Assessment: Benign, BI-RAD 2 Management: Screening Mammogram of both breasts in 1 year. . Patient should continue monthly self-breast exams. A clinical breast exam by your physician is recommended on an annual basis. This exam should not preclude additional follow-up of suspicious palpable abnormalities. Note on Jemma scores and lifetime risk: 1. A Jemma score greater than 3% is considered moderate risk. If this is the case, consider specialist referral to assess eligibility for a risk reducing agent. 2. If overall lifetime risk for the development of breast cancer is 20% or higher, the patient may qualify for future screening with alternating mammogram and breast MRI. [facility], , 02/22/2024 8:11 AM. Electronically signed and approved by: Hong Samson M.D. Radiologis
== END | disposition home or self-care (01) ==
LOC: RADMAMWWP 14:33
PROVIDERS: ATTEND Internal Medicine
DX: Z12.31 Encounter for screening mammogram for malignant neoplasm of breast (principal); Z78.0 Asymptomatic menopausal state; Z80.3 Family history of malignant neoplasm of breast; R92.333 Mammographic heterogeneous density, bilateral breasts
CPT/HCPCS: 77063; 77067

== ENCOUNTER → 2024-02-18 | Outpatient (CLI) | payer MEDICAID ==
[2024-02-18 20:10] LABS: HCT 42.1 % (37.2-46.3); HGB 14.1 g/dL (12.0-15.0); MCH 30.3 pg (27.0-32.0); MCHC 33.5 g/dL (32.0-37.0); MCV 90.5 FL (80.0-97.0); Mean Platelet Volume 10.6 FL (9.5-12.2); NRBC Per 100 WBC 0 X 10*3/uL (0.00-0.01); Platelet Count 369 X 10*3/uL (140-440); RBC 4.65 X 10*6/uL (4.10-5.20); RDW 14.1 % (11.5-14.5); WBC 14.31 X 10*3/uL (4.50-10.00)
[2024-02-18 20:38] LABS: Basophils # (M) 0 X 10*3/uL (0.00-0.10); Eosinophils # (M) 0.57 X 10*3/uL (0.04-0.35); Lymphocytes # (M) 6.01 X 10*3/uL (0.90-5.00); Monocytes # (M) 0.72 X 10*3/uL (0.20-1.00); Neutrophils # (M) 7.01 X 10*3/uL (1.80-7.70); Neutrophils % (M) 49 %; RBC Morphology Normal (Normal)
[2024-02-18 20:44] LABS: ALT 44 U/L (8-44); AST 20 U/L (13-35); Albumin 4.1 g/dL (3.8-4.9); Albumin/Globulin Ratio 1.78 Ratio (1.60-3.17); Alkaline Phosphatase 78 U/L (41-126); Calcium 9.2 mg/dL (8.7-10.3); Carbon Dioxide 26.7 mmol/L (21.6-31.8); Chloride 103 mmol/L (96-109); Chol/HDL Ratio 2.47 Ratio; Globulin 2.3 g/dL (1.6-3.3); Glucose 83 mg/dL (70-110); Potassium 4.3 mmol/L (3.5-5.5); Sodium 140 mmol/L (135-145); Total Bilirubin 0.5 mg/dL (0.3-1.2); Total Protein 6.4 g/dL (6.2-8.2)
== END | disposition home or self-care (01) ==
LOC: LABWHC1 14:28
PROVIDERS: ATTEND Internal Medicine
DX: Z00.01 Encounter for general adult medical examination with abnormal findings (principal); Z13.220 Encounter for screening for lipoid disorders; I10 Essential (primary) hypertension
CPT/HCPCS: 36415; 80053; 80061; 85025

== ENCOUNTER → 2024-09-12 | Outpatient (CLI) | payer MEDICARE ==
--- NOTE | 2024-09-12 13:17 | US ---
EXAMINATION TYPE: US liver DATE OF EXAM: 09/12/2024 COMPARISON: NONE CLINICAL INDICATION: Female, 69 years old with history of R74.8 ABNORMAL LIVER ENZYMES; abnormal live r enzymes TECHNIQUE: Grayscale and color Doppler imaging of the right upper quadrant was performed. FINDINGS: EXAM MEASUREMENTS: Liver Length: 13.1 cm Gallbladder Wall: 0.17 cm CBD: 0.38 cm Right Kidney: 9.1 x 4.4 x 4.1 cm HISTOLOGY TECH NOTES: Pancreas: wnl Liver: wnl Gallbladder: wnl Evidence for sonographic Lay's sign: No CBD: wnl Right Kidney: wnl IMPRESSION: 1. Unremarkable right upper quadrant ultrasound [facility], , 09/12/2024 1:15 PM
== END | disposition home or self-care (01) ==
LOC: RADUSWWP 09:19
PROVIDERS: ATTEND Internal Medicine
DX: R74.8 Abnormal levels of other serum enzymes (principal)
CPT/HCPCS: 76705